=== PATIENT | female | born 1975 | race Caucasian/White ===

== ENCOUNTER 2022-08-19 13:51 | Outpatient (CLI) | payer MEDICAID ==
[2022-08-19 14:08] LABS: BASOPHILS # (AUTO) 0.1 10^3/uL (0.0-0.1); EOSINOPHILS # (AUTO) 0.1 10^3/uL (0.0-0.7); HCT - HEMATOCRIT 39.6 % (37.0-47.0); HGB - HEMOGLOBIN 13.5 g/dL (12.0-16.0); LYMPHOCYTES # (AUTO) 2.3 10^3/uL (1.5-3.5); LYMPHOCYTES % (AUTO) 39.1 %; MEAN CORPUSCULAR HEMOGLOBIN 29.8 pg (27.0-31.0); MEAN CORPUSCULAR HGB CONC 34.1 g/dL (32.0-36.0); MEAN CORPUSCULAR VOLUME 87.4 fL (81.0-99.0); MEAN PLATELET VOLUME 8.5 fL (7.9-10.8); MONOCYTES # (AUTO) 0.4 10^3/uL (0.0-1.0); NEUTROPHILS # (AUTO) 3.1 10^3/uL (1.5-6.6); NEUTROPHILS % (AUTO) 51.6 %; PLT - PLATELET COUNT 323 10^3/uL (130-450); RED BLOOD COUNT 4.53 10^6/uL (4.20-5.40); RED CELL DISTRIBUTION WIDTH 12.8 % (12.0-15.0)
[2022-08-19 14:11] LABS: BILIRUBIN,URINE NEGATIVE (NEGATIVE); GLUCOSE, URINE (UA) NEGATIVE (NEGATIVE); KETONES,URINE (UA) TRACE mg/dL (NEGATIVE); LEUKOCYTE ESTERASE, URINE NEGATIVE (NEGATIVE); NITRITE,URINE NEGATIVE (NEGATIVE); OCCULT BLOOD,URINE NEGATIVE (NEGATIVE); PROTEIN,URINE TRACE mg/dL (NEGATIVE); UROBILINOGEN,URINE 0.2 (NORMAL) E.U./dL (NORMAL)
[2022-08-19 14:26] LABS: BACTERIA,URINE Moderate /HPF (None Seen); CLARITY,URINE HAZY (CLEAR); CRYSTALS,URINE 3-5 Uric Acid /LPF; RBC,URINE None Seen /HPF (0-5); SQUAMOUS EPITHELIAL CELL,UR MOD Squamous (<= Few)
[2022-08-19 14:50] LABS: ALBUMIN 4.4 g/dL (3.2-5.5); ALBUMIN/GLOBULIN RATIO 1.4 (1.0-2.2); ALKALINE PHOSPHATASE 48 IU/L (42-121); ALT ALANINE AMINOTRANSFERASE 20 IU/L (10-60); AST ASPARTATE AMINOTRANSFERASE 19 IU/L (10-42); BILIRUBIN,TOTAL 0.4 mg/dL (0.2-1.0); BUN - BLOOD UREA NITROGEN 16 mg/dL (6-20); CALCIUM 9.2 mg/dL (8.5-10.3); CARBON DIOXIDE - CO2 29 mmol/L (21-32); CHLORIDE 102 mmol/L (101-111); CHOL/HDL RATIO 4.4 (<4.4); CHOLESTEROL 224 mg/dL; CREATININE 0.9 mg/dL (0.4-1.0); GFR - MDRD 67 (>89); GLUCOSE 100 mg/dL (70-100); HDL CHOLESTEROL 51 mg/dL; LDL CHOLESTEROL,CALCULATED 145 mg/dL; LDL/HDL RATIO 2.8 (<4.4); POTASSIUM 3.4 mmol/L (3.5-5.0); SODIUM 138 mmol/L (135-145); TOTAL PROTEIN 7.5 g/dL (6.7-8.2); TRIGLYCERIDES 139 mg/dL; VLDL CHOLESTEROL 28 mg/dL
[2022-08-19 14:58] LABS: THYROID STIMULATING HORMONE 0.77 uIU/mL (0.34-5.60)
[2022-08-19 15:06] LABS: ESTIMATED AVERAGE GLUCOSE 123 mg/dL (70-100); HEMOGLOBIN A1c% 5.9 % (4.27-6.07)
== END 2022-08-19 13:52 | disposition home or self-care (01) ==
LOC: LAB 13:51
PROVIDERS: ATTEND Physician Assistant
DX: M32.9 Systemic lupus erythematosus, unspecified (principal); R73.03 Prediabetes; Z13.9 Encounter for screening, unspecified; Z85.528 Personal history of other malignant neoplasm of kidney
CPT/HCPCS: 36415; 80050; 80061; 81001; 83036; 83721; 87086

== ENCOUNTER 2022-10-26 08:00 | Outpatient (CLI) | payer MEDICAID ==
[2022-10-26 20:51] LABS: CHLAMYDIA TRACHOMATIS DNA NEGATIVE (NEGATIVE); NEISSERIA GONORRHOEAE DNA NEGATIVE (NEGATIVE)
[2022-10-26 21:38] LABS: BACTERIAL VAGINOSIS DNA NEGATIVE (NEGATIVE); CANDIDA GLABRATA DNA NEGATIVE (NEGATIVE); CANDIDA GROUP DNA NEGATIVE (NEGATIVE); CANDIDA KRUSEI DNA NEGATIVE (NEGATIVE); TRICHOMONAS VAGINALIS DNA NEGATIVE (NEGATIVE)
== END 2022-10-26 23:59 | disposition home or self-care (01) ==
LOC: LAB.WC 08:00
PROVIDERS: ATTEND Obstetrics & Gynecology
DX: N76.0 Acute vaginitis (principal)
CPT/HCPCS: 81514; 87491; 87591; 87661

== ENCOUNTER 2022-12-14 14:31 | Outpatient (CLI) | payer MEDICAID ==
--- NOTE | 2022-12-14 16:24 | XRAY Report ---
PROCEDURE: Foot 3 View RT INDICATIONS: FOOT PAIN, RIGHT TECHNIQUE: 3 views of the foot were acquired. COMPARISON: None. FINDINGS: Bones: No fractures or dislocations. No suspicious bony lesions. Plantar and posterior calcaneal enthesophytes. Soft tissues: No suspicious soft tissue calcifications or masses. IMPRESSION: No acute bony abnormality. Calcaneal enthesophytes. Reviewed by: Eliezer Siddiqi on 12/14/2022 4:23 PM PDT Approved by: Eliezer Siddiqi on 12/14/2022 4:23 PM PDT Station ID: [id number]
== END 2022-12-14 14:32 | disposition home or self-care (01) ==
LOC: DI 14:31
PROVIDERS: ATTEND Physician Assistant
DX: M77.31 Calcaneal spur, right foot (principal)

== ENCOUNTER 2022-12-15 10:08 | Outpatient (CLI) | payer MEDICAID, OTHER ==
--- NOTE | 2022-12-15 10:58 | Sleep Patient Instructions ---
Sleep Center Visit Summary - Patient Visit Information Reason for Visit: Initial consult for evaluation of sleep disordered breathing and other sleep issues. - Patient Instructions Instructions Attached: Sleep Study Home Monitor, Sleep Clinic Visit, Sleep Study Additional Instructions: You will be completing a sleep study, either an in-lab polysomnography (PSG) or home sleep study (HST). You will follow-up in the sleep care office after the sleep study is completed to hear the results and talk about therapy, if needed. You will be called by our office staff to schedule this appointment, but you may contact us with any questions. - Clinic Information Contact: [facility] [address] [place] [address] [email or web address] T: [phone]
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
[2022-12-15 11:09] VITALS: BP 118/76; O2SAT 98
== END 2022-12-15 10:09 | disposition home or self-care (01) ==
LOC: SC 10:08
PROVIDERS: ATTEND Nurse Practitioner Family
DX: R51.9 Headache, unspecified (principal); G47.8 Other sleep disorders; R41.89 Other symptoms and signs involving cognitive functions and awareness; G47.10 Hypersomnia, unspecified; R06.83 Snoring; Z87.891 Personal history of nicotine dependence; E66.9 Obesity, unspecified; Z68.30 Body mass index [BMI] 30.0-30.9, adult
CPT/HCPCS: 99203; 99212

== ENCOUNTER 2022-12-31 10:32 | Outpatient (CLI) | payer MEDICAID ==
[2022-12-31 13:14] LABS: CREATININE 0.8 mg/dL (0.6-1.3)
[2022-12-31] MEDS ORDERED: iohexoL-300 100 ML VIAL IVP ONE (14:53)
[2022-12-31] MEDS ORDERED: BARIUM SULFATE 1,900 ML BOTTLE RC ONE (14:54)
--- NOTE | 2023-01-08 01:05 | CT Report ---
PROCEDURE: ABDOMEN/PELVIS W INDICATIONS: KIDNEY CA CONTRAST: 100ml omni 300 TECHNIQUE: After the administration of oral and IV contrast, 5 mm thick sections acquired from the diaphragms to the symphysis. 5 mm thick coronal and sagittal reformats were acquired. For radiation dose reducti on, the following was used: automated exposure control, adjustment of mA and/or kV according to mora ent size. COMPARISON: Not available. FINDINGS: Image quality: Excellent. Lung bases and heart: Unremarkable. Liver: No solid mass. Mild hepatic steatosis. Gallbladder and biliary tree: Normal gallbladder. No biliary dilation. Spleen: No splenomegaly. Pancreas: No pancreatic ductal dilation. Adrenals: No adrenal nodule. Kidneys and ureters: There is a cortical scar in the inferior pole of the right kidney, presumably se condary to postsurgical change. No hydronephrosis. No renal cystic lesion which requires follow up. N o solid mass. Bowel and peritoneum: No bowel distension. No pathologic free fluid. Lymph nodes: No central or retroperitoneal adenopathy. Vessels: No infrarenal aortic aneurysm. PELVIS Reproductive organs: Unremarkable. Bladder: No abnormal wall thickening, accounting for underdistension. Pelvic lymph nodes: No pelvic adenopathy by size criteria. Bones: No aggressive osseous abnormality. Other: No significant ventral or inguinal hernia. IMPRESSION: 1. Cortical scar in the inferior pole of the right kidney, presumably postsurgical change. No recurre nt mass. There is no prior CTs available for comparison. Please obtain prior cross-sectional imaging studies, if available. 2. No lymphadenopathy in abdomen or pelvis. 3. No findings to suggest distant metastasis. Reviewed by: Edwin Arnold MD on 01/08/2023 1:04 AM PDT Approved by: Edwin Arnold MD on 01/08/2023 1:04 AM PDT Station ID: [id number]
== END 2022-12-31 10:33 | disposition home or self-care (01) ==
LOC: DI 10:32
PROVIDERS: ATTEND Urology
DX: Z08 Encounter for follow-up examination after completed treatment for malignant neoplasm (principal); Z85.528 Personal history of other malignant neoplasm of kidney
CPT/HCPCS: 36415; 74177; 82565; A9270; Q9967

== ENCOUNTER 2023-01-20 14:21 | Outpatient (CLI) | payer MEDICAID | END 2023-01-20 14:22 | disposition home or self-care (01) | LOC: SC 14:21 | PROVIDERS: ATTEND Nurse Practitioner Family | DX: G47.10 Hypersomnia, unspecified (principal); R09.02 Hypoxemia; R53.83 Other fatigue; G47.8 Other sleep disorders; R51.9 Headache, unspecified; E66.9 Obesity, unspecified; R06.83 Snoring; I10 Essential (primary) hypertension; F32.A Depression, unspecified | CPT/HCPCS: 95806 ==

== ENCOUNTER 2023-02-10 17:00 | Outpatient (CLI) | payer MEDICAID ==
--- NOTE | 2023-02-11 15:09 | MRI Report ---
PROCEDURE: FOOT WO - RT INDICATIONS: RIGHT FOOT PAIN TECHNIQUE: Noncontrast sagittal T1 spin echo and T2 fast spin echo with fat saturation, long-axis T1 spin echo a nd T2 fast spin echo with fat saturation, short-axis proton density fast spin echo and T2 fast spin e cho with fat saturation through the forefoot. COMPARISON: Right foot radiograph dated 12/14/2022. FINDINGS: Image quality: Excellent. Bones and joints: No bone marrow contusions or metatarsal stress fractures. Mild first MTP joint ost eoarthritis is seen with joint space narrowing, subchondral sclerosis. No suspicious bony lesions. Soft tissues: The visualized plantar foot muscles demonstrate normal signal and bulk. Visualized fl exor and extensor tendons appear intact, without tenosynovitis. Lisfranc ligament is mildly thickene d with subtle intrasubstance T2 hyperintense signal. No soft tissue ganglion cysts or bursal fluid co llections. Sagittal images demonstrate no evidence for plantar plate tears in second through fifth t oes. T2 hyperintense signal involving lateral sesamoid phalangeal ligament of first MTP joint is seen . IMPRESSION: 1. Mild first MTP joint osteoarthritis. No marrow edema. No fracture or dislocation. No metatarsal st ress fractures. 2. Sprain/low-grade intrasubstance partial thickness tear involving Lisfranc ligament. Extensor and f lexor tendons are intact. 3. Suggestion of low to moderate grade partial-thickness tear involving lateral sesamoid interphalang eal ligament of first MTP joint concerning for low-grade turf toe injury. No definite plantar plate t ear is seen in second through fifth toes. Reviewed by: Sharan Dao MD on 02/11/2023 3:07 PM PST Approved by: Sharan Dao MD on 02/11/2023 3:07 PM PST Station ID: [id number]
== END 2023-02-10 17:01 | disposition home or self-care (01) ==
LOC: DI 17:00
PROVIDERS: ATTEND Physician Assistant
DX: M19.071 Primary osteoarthritis, right ankle and foot (principal); S93.691A Other sprain of right foot, initial encounter

== ENCOUNTER 2023-02-11 14:06 | Outpatient (CLI) | payer MEDICAID ==
--- NOTE | 2023-02-11 14:35 | Sleep Patient Instructions ---
Sleep Center Visit Summary - Patient Visit Information Reason for Visit: Sleep study followup - Patient Instructions Instructions Attached: Insomnia Tx Additional Instructions: Your sleep study today was negative for significant sleep disordered breathing. However, because of your insomnia issues we will have you complete a 2 week sleep diary and come back to see Dr. Egan in followup. You were found to have episodes of snoring. There are different ways to control snoring including weight loss, oral devices made by a dentist or surgical options through ENT specialist. You should not use oral devices that do not fit properly because they can affect your bite. You should also check insurance coverage of oral devices for snoring because they may not be cover well. You may obtain a referral to an ENT specialist through your primary provider. Follow-up in 1-2 months. - Clinic Information Contact: [facility] [address] [place] [address] [email or web address] T: [phone]
--- NOTE | 2023-02-11 14:40 | SLEEP CARE CONSULTATION ---
Information from patient questionnaire entered by Karlie Powell. I have reviewed and concur with the information entered by Karlie Powell. This document represents the service I personally performed and the decisions made by , Phyllis Johns ARNP. History of Present Illness Service Date and Time: 02/11/2023 1406 Initial [place] Sleepiness Scale score: 6 Current [place] Sleepiness Scale score: 6 (02/11/23) Additional HPI information: SIRIA MANDUJANO returns for follow up and results of the recently performed home sleep study. The patient was informed of the following findings: No significant sleep disordered breathing with an average AHI of 1.4 and zechariah oxygen saturation of 87%. I explained the pathophysiology behind obstructive sleep apnea. Patient does not have sleep apnea and was advised how weight gain could increase the risk of developing sleep apnea in the future. I strongly encouraged the patient to lose weight. Patient has mild snoring. Snoring can be reduced by weight loss. Weight loss is best achieved with diet consult. Patient instructed to contact PCP for referral. Snoring can also be treated with an oral appliance from a dentist. Advised to check insurance coverage. In addition, an ENT evaluation can be do to see if other treatment is indicated. Patient does not drink alcohol. Patient was cautioned about risks of drowsy driving until sleepiness symptoms resolve. Patient denies drowsy driving. Sleep Study - Results Type of Sleep Study: Home sleep study (COMPLETED 01/20/23) Prior sleep studies: No Polysomnography/Home Sleep Study results: Physician Impression: The quality of the study is good. The length of the study is adequate (> 240 minutes). Please also see the tabulated and graphic data. 1. No significant sleep disordered breathing with an AHI of 1.4/hr and zechariah SaO2 of 87%. During the study, the patient had 2 apneas (2 obstructive, 0 central, 0 mixed) and 13 hyp opneas. The longest episode lasted 109.0 seconds. The patient slept adequately in supine position (supine AHI was 1.5 and non-supine, 1.20). 2. Hypoxemia (ICD-10 R09.02), minimal, with the lowest oxygen saturation of 87 % and 0.5 minutes with SaO2 under 90%. Baseline oxygen saturation was normal (Average oxygen saturation was 95%). Allergies and Home Medications Known drug allergies: Yes (morphine) Drug allergies reviewed: Yes Home medication list reviewed: Yes (Methotrexate, folic acid, Humira (soon)) Review of Systems Review of systems same as previous: No (COLOOSCOPY) Physical Exam Vital signs obtained and entered by: KARLIE Edmond MA Blood Pressure: 124/72 (LEFT ARM) Cuff size: regular Heart Rate: 77 O2 Saturation: 97 Height: 5 ft 5 in Weight: 182 lb 12.8 oz Body Mass Index: 30.4 BMI Classification: Obese Impression and Plan 1. Insomnia, sleep-onset and maintenance. Patient has a lot of trouble falling asleep and cannot tolerate medications for sleep because she is very slow to metabolize. She can take on average 3 to 4 hours to fall asleep and has difficulty going back to sleep if any thing stimulates her brain such as someone talking to her. She is very tired after few hours of being up and can nap for couple hours at a time. She has extreme daytime fatigue. Insomnia is generally caused by an irregular sleep schedule, spending too much time in bed, napping, caffeine, electronics, lack of a relaxing bedtime ritual and clock watching. Other factors can include anxiety/depression, pain, medications, and obstructive sleep apnea. A sleep diary will be completed for the next 2 weeks to assist implementation of recommendations and for further evaluation of sleep concerns. 2. Snoring but no significant sleep disordered breathing. Patient advised that often weight loss will reduce snoring as well as apnea risk. An oral appliance can also be used for snoring. This would require a dental consultation. Patient cautioned not to use other online appliances as can cause bite issues. Patient is advised to check if insurance will cover. An ENT consult can also be helpful to determine if any other treatment is an option. 3. Hypoxemia, minimal, with a zechariah oxygen saturation of 87% and 0.5 minutes spent under 90%. The baseline oxygen saturation was normal with an average oxygen saturation of 95%. 4. Obesity, unspecified. Currently patients BMI is 30.4. Obesity increases the risk of apnea, CPAP pressure requirements and overall health risks especially cardiovascular and diabetes. Thus patient is advised to lose weight. * Fill out 2 weeks sleep diary * Attempt to lose weight * The patient is cautioned about driving until sleepiness is completely resolved. * Return in 1-2 months for insomnia follow up with Dr. Pimentel. Counseling Topics: Weight loss health impact Follow up with Sleep Care in: 1-2 months Plan: 2 weeks sleep diary filled out and followup for insomnia Visit Type: In Office Time Spent with Patient (minutes): 20 Provider Statement: I spent 100% of the Face to Face Visit with the patient with greater than 50% spent counseling the patient and coordination of care.
[2023-02-11 14:54] VITALS: BP 124/72; O2SAT 97
== END 2023-02-11 14:07 | disposition home or self-care (01) ==
LOC: SC 14:06
PROVIDERS: ATTEND Nurse Practitioner Family
DX: G47.00 Insomnia, unspecified (principal); R06.83 Snoring; R09.02 Hypoxemia; E66.9 Obesity, unspecified; Z68.30 Body mass index [BMI] 30.0-30.9, adult
CPT/HCPCS: 99212; 99213

== ENCOUNTER 2023-06-02 11:40 | Outpatient (CLI) | payer MEDICAID ==
[2023-06-02 11:58] LABS: BASOPHILS # (AUTO) 0.1 10^3/uL (0.0-0.1); EOSINOPHILS # (AUTO) 0.1 10^3/uL (0.0-0.7); EOSINOPHILS % (AUTO) 1.4 %; HCT - HEMATOCRIT 40.1 % (37.0-47.0); HGB - HEMOGLOBIN 13.7 g/dL (12.0-16.0); LYMPHOCYTES # (AUTO) 2.8 10^3/uL (1.5-3.5); MEAN CORPUSCULAR HEMOGLOBIN 31.8 pg (27.0-31.0); MEAN CORPUSCULAR HGB CONC 34.2 g/dL (32.0-36.0); MONOCYTES # (AUTO) 0.3 10^3/uL (0.0-1.0); MONOCYTES % (AUTO) 4.4 %; NEUTROPHILS # (AUTO) 2.5 10^3/uL (1.5-6.6); PLT - PLATELET COUNT 282 10^3/uL (130-450); RED BLOOD COUNT 4.31 10^6/uL (4.20-5.40); WHITE BLOOD COUNT 5.7 x10^3/uL (4.8-10.8)
[2023-06-02 12:27] LABS: MICROALBUM/CREATININE RATIO,UR 3.6 ug/mg (<30.0); MICROALBUMIN,URINE 0.9 mg/dL
[2023-06-02 12:28] LABS: % IRON SATURATION 42 % (20-50); ALBUMIN 4.5 g/dL (3.2-5.5); ALBUMIN/GLOBULIN RATIO 1.7 (1.0-2.2); ALKALINE PHOSPHATASE 47 IU/L (42-121); ALT ALANINE AMINOTRANSFERASE 43 IU/L (10-60); AST ASPARTATE AMINOTRANSFERASE 27 IU/L (10-42); BILIRUBIN,TOTAL 0.5 mg/dL (0.2-1.0); BUN - BLOOD UREA NITROGEN 14 mg/dL (6-20); CALCIUM 10.1 mg/dL (8.5-10.3); CARBON DIOXIDE - CO2 32 mmol/L (21-32); CHLORIDE 102 mmol/L (101-111); CHOL/HDL RATIO 5.2 (<4.4); CHOLESTEROL 224 mg/dL; CREATININE 0.8 mg/dL (0.6-1.3); GFR - MDRD 77 (>89); GLUCOSE 116 mg/dL (74-104); HDL CHOLESTEROL 43 mg/dL; IRON 139 ug/dL (50-212); LDL CHOLESTEROL,CALCULATED 146 mg/dL; LDL/HDL RATIO 3.4 (<4.4); POTASSIUM 3.4 mmol/L (3.5-4.5); SODIUM 139 mmol/L (135-145); TOTAL IRON BINDING CAPACITY 329 ug/dL (250-450); TOTAL PROTEIN 7.2 g/dL (6.4-8.9); TRANSFERRIN 235 mg/dL (203-362); TRIGLYCERIDES 173 mg/dL (48-352); VLDL CHOLESTEROL 35 mg/dL
[2023-06-02 12:47] LABS: ESTIMATED AVERAGE GLUCOSE 111 mg/dL (70-100); HEMOGLOBIN A1c% 5.5 % (4.27-6.07)
== END 2023-06-02 11:41 | disposition home or self-care (01) ==
LOC: LAB 11:40
PROVIDERS: ATTEND Specialist/Technologist Athletic Trainer
DX: R73.03 Prediabetes (principal); D50.9 Iron deficiency anemia, unspecified; E03.9 Hypothyroidism, unspecified
CPT/HCPCS: 36415; 80050; 80061; 82043; 82570; 82728; 83036; 83540; 83721; 84439; 84466; 84481

== ENCOUNTER 2023-06-17 10:50 | Outpatient (CLI) | payer MEDICAID ==
[2023-06-17 15:04] LABS: HCT - HEMATOCRIT 42.3 % (37.0-47.0); MEAN CORPUSCULAR HEMOGLOBIN 31.5 pg (27.0-31.0); MEAN CORPUSCULAR HGB CONC 33.1 g/dL (32.0-36.0); MEAN CORPUSCULAR VOLUME 95.3 fL (81.0-99.0); MEAN PLATELET VOLUME 9.9 fL (7.9-10.8); RED BLOOD COUNT 4.44 10^6/uL (4.20-5.40); RED CELL DISTRIBUTION WIDTH 13.2 % (12.0-15.0); WHITE BLOOD COUNT 6.5 x10^3/uL (4.8-10.8)
== END 2023-06-17 10:51 | disposition home or self-care (01) ==
LOC: LAB.S 10:50
PROVIDERS: ATTEND Specialist/Technologist Athletic Trainer
DX: M35.2 Behcet's disease (principal)
CPT/HCPCS: 36415; 85025; 85027; 85651; 86140

== ENCOUNTER 2023-11-25 12:53 | Outpatient (CLI) | payer MEDICAID ==
[2023-11-25 13:08] LABS: CREATININE 0.8 mg/dL (0.6-1.3)
[2023-11-25] MEDS ORDERED: iohexoL-300 150 ML BOTTLE ONE (13:17)
[2023-11-25] MEDS: iohexoL-300 150 ML BOTTLE IVP ONE (16:53)
--- NOTE | 2023-11-25 22:31 | CT Report ---
PROCEDURE: IVP INDICATIONS: KIDNEY STONES, KIDNEY CA CONTRAST: omni, 140 TECHNIQUE: A [address] of the abdomen and pelvis was performed. Non-contrast and contrast images were recorded and evaluated at appropriate window settings. Images were recorded and evaluated at appropriate windo w settings. Reformats: coronal and sagittal. For radiation dose reduction, the following was used: au tomated exposure control, adjustment of mA and/or kV according to patient size. COMPARISON: 01/01/2020. FINDINGS: Image quality: Diagnostic. Lower chest: Unremarkable. Liver: Mild hepatomegaly and slight hepatic steatosis with relative sparing in the gallbladder fossa. No solid masses. Gallbladder: Contracted. Normal wall thickness. No visible calcifications. Biliary tree: No intrahepatic or extrahepatic dilation, accounting for age. Spleen: No splenomegaly. Pancreas: No pancreatic ductal dilation. Adrenals: No adrenal nodule. Kidneys and ureters: Both kidneys are normal in size. Surgical staple lines along the anterior inferi or right renal cortex and underlying cortex loss. No nephrolithiasis or hydronephrosis. The opacified collecting systems are normal without suspicious filling defect. There are occasional subcentimeter cortical cysts bilaterally. No cortical mass. The ureters are normal in course and caliber without wa ll thickening or stones. Stomach, bowel and peritoneum: The stomach, bowel loops, and appendix are normal. Abdominal Lymph nodes: No central or retroperitoneal adenopathy. Vessels: Normal caliber abdominal aorta, IVC, and portal vein. Patent portal vein. Reproductive organs: Uterus and ovaries have a normal CT appearance. Tubal ligation clip in the poste rior pelvis, and the other curves left fallopian tube. Bladder: No abnormal wall thickening, accounting for underdistention. No calcified bladder stones. No filling defect within the opacified bladder. Pelvic Lymph nodes: Unremarkable. Bones: No aggressive osseous abnormality. Other: None. IMPRESSION: Prior right lower pole partial nephrectomy without evidence of local recurrence. No evidence of metastatic disease in the abdomen or pelvis. No suspicious adenopathy. Mild hepatomegaly and hepatic steatosis. Reviewed by: Tigist Vega MD on 11/25/2023 10:29 PM PDT Approved by: Tigist Vega MD on 11/25/2023 10:29 PM PDT Station ID: [id number]
== END 2023-11-25 12:54 | disposition home or self-care (01) ==
LOC: DI 12:53
PROVIDERS: ATTEND Urology
DX: R30.0 Dysuria (principal); K76.0 Fatty (change of) liver, not elsewhere classified; Z87.442 Personal history of urinary calculi; Z85.528 Personal history of other malignant neoplasm of kidney; Z90.5 Acquired absence of kidney
CPT/HCPCS: 36415; 82565